=== PATIENT | male | born 1945 ===

== ENCOUNTER 2023-01-06 14:55 | Emergency (ER) | payer MEDICARE ==
[2023-01-06 15:24] LABS: BILIRUBIN,URINE NEGATIVE (NEGATIVE); GLUCOSE, URINE (UA) NEGATIVE (NEGATIVE); KETONES,URINE (UA) NEGATIVE (NEGATIVE); LEUKOCYTE ESTERASE, URINE NEGATIVE (NEGATIVE); NITRITE,URINE NEGATIVE (NEGATIVE); OCCULT BLOOD,URINE LARGE (NEGATIVE); PROTEIN,URINE NEGATIVE (NEGATIVE); UROBILINOGEN,URINE 0.2 (NORMAL) E.U./dL (NORMAL)
[2023-01-06] MEDS ORDERED: SODIUM CHLORIDE 0.9% 1,000 ML IV STA (15:27)
[2023-01-06 15:29] LABS: CLARITY,URINE CLEAR (CLEAR)
[2023-01-06 15:38] LABS: BASOPHILS % (AUTO) 0.2 %; EOSINOPHILS # (AUTO) 0.1 10^3/uL (0.0-0.7); HGB - HEMOGLOBIN 14.6 g/dL (14.0-18.0); LYMPHOCYTES # (AUTO) 1.1 10^3/uL (1.5-3.5); LYMPHOCYTES % (AUTO) 9.2 %; MEAN CORPUSCULAR HEMOGLOBIN 32.9 pg (27.0-31.0); MEAN CORPUSCULAR VOLUME 96.8 fL (80.0-94.0); MEAN PLATELET VOLUME 10.3 fL (7.4-11.4); MONOCYTES # (AUTO) 1.3 10^3/uL (0.0-1.0); MONOCYTES % (AUTO) 10.9 %; NEUTROPHILS % (AUTO) 78.4 %; PLT - PLATELET COUNT 168 10^3/uL (130-450); RED BLOOD COUNT 4.44 10^6/uL (4.70-6.10); RED CELL DISTRIBUTION WIDTH 13.1 % (12.0-15.0); WHITE BLOOD COUNT 11.5 x10^3/uL (4.8-10.8)
[2023-01-06 15:39] LABS: BACTERIA,URINE Rare /HPF (None Seen); RBC,URINE TNTC /HPF (0-5); SQUAMOUS EPITHELIAL CELL,UR NONE SEEN (<= Few); WBC,URINE 0-3 /HPF (0-3)
[2023-01-06 15:47] LABS: ALBUMIN 4.2 g/dL (3.2-5.5); ALBUMIN/GLOBULIN RATIO 1.4 (1.0-2.2); BILIRUBIN,TOTAL 0.9 mg/dL (0.2-1.0); CALCIUM 8.9 mg/dL (8.5-10.3); CREATININE 1.3 mg/dL (0.6-1.2); POTASSIUM 3.8 mmol/L (3.5-5.0); TOTAL PROTEIN 7.3 g/dL (6.7-8.2)
--- NOTE | 2023-01-06 17:08 | CT Report ---
PROCEDURE: ABDOMEN/PELVIS WO INDICATIONS: L flank pain hx/o kidney stone TECHNIQUE: A CT scan of the abdomen and pelvis was performed without the use of intravenous contrast. Images we re recorded and evaluated at appropriate window settings. Reformats: coronal and sagittal. For radiat ion dose reduction, the following was used: automated exposure control, adjustment of mA and/or kV ac cording to patient size. COMPARISON: None. FINDINGS: Image quality: There is streak artifact seen through the upper abdomen. Lung bases and heart: Unremarkable. A small to moderate hiatal hernia is incidentally noted. Liver: No solid mass. Gallbladder and biliary tree: Within normal limits. Spleen: No splenomegaly. Pancreas: No pancreatic ductal dilation. Adrenals: No adrenal nodule. Kidneys and ureters: There is a pair of obstructing stones seen within the left mid ureter, as on ser ies 2 image 54 and on series 5 image 39, with the largest of the stones measuring 7 mm craniocaudal a nd measuring 400 Hounsfield units. Associated moderate left-sided hydroureter and hydronephrosis can be seen. No obstructing left-sided kidney stones are seen, with the largest measuring 7 mm and 450 Hounsfield units. On the right, no definite stones are seen. Several bilateral renal cysts are seen. Along the right kidney laterally, there is an exophytic focus seen, as on series 5 image 51 that measures 60 Hounsfield units centrally and measures up to 1.8 cm. Bowel and peritoneum: No bowel distension. No pathologic free fluid. Postoperative change can be seen involving the gastroesophageal junction. No significant appendix abnormality is seen. Sigmoid diverticulosis is seen, without findings of active diverticulitis. Lymph nodes: No central or retroperitoneal adenopathy. Vessels: No infrarenal aortic aneurysm. Atherosclerotic calcification is seen. PELVIS Reproductive organs: Unremarkable. Bladder: No wall thickness, accounting for underdistention. Pelvic lymph nodes: No pelvic adenopathy by size criteria. Bones: No aggressive osseous abnormality. Bilateral L5 pars defects are seen, with grade 1 L5-S1 ante rolisthesis. Focal lower lumbar spine degenerative change can be seen. Mild levoconvex scoliotic curv ature is seen. Other: There is a moderate fat-containing periumbilical hernia present. IMPRESSION: There is a pair of obstructing stones are seen within the left mid ureter, with the largest measuring 7 mm. Associated moderate left sided hydroureter and hydronephrosis can be seen. There is a 1.8 cm lesion along the lateral aspect of the right kidney that cannot be defined as a sim ple cyst. Follow-up is recommended, either beginning with renal ultrasound or renal mass protocol CT. Additional findings: Small to moderate hiatal hernia Gastroesophageal junction postoperative change Bilateral simple appearing renal cysts Moderate fat-containing periumbilical hernia Diverticulosis, without findings of active diverticulitis. Levoconvex scoliotic curvature Focal lower lumbar spine degenerative change Bilateral L5 pars defects, with grade 1 L5-S1 anterolisthesis Reviewed by: Apolinar Kat MD on 01/06/2023 4:07 PM H[facility]ARY Approved by: Apolinar Kat MD on 01/06/2023 4:07 PM HILARY Station ID: [id number]
[2023-01-06 17:24] VITALS: BP 144/94
--- NOTE | 2023-01-06 17:24 | ED Physician Documentation ---
PD HPI ABD PAIN - Stated complaint Stated Complaint: PX LEFT KIDNEY / MALE - Chief complaint Chief Complaint: Ext Problem - History obtained from History obtained from: Patient - History of Present Illness Timing - onset: How many days ago (3) Timing - duration: Days (3) Timing - details: Abrupt onset, Still present Quality: Sharp, Pain Location: LUQ Radiation: Left flank Improved by: Meds Worsened by: Other (nothing) Associated symptoms: Nausea Similar symptoms before: Diagnosis (kidney stone) Recently seen: Not recently seen - Additional information Additional information: Evan Sellers is a 77-year-old male with a history of kidney stone who has developed pain in the left flank consistent with what he is had previously with kidney stone about 3 days ago. He is not getting adequate relief with Tylenol. He has had lithotripsy previously he has had basket retrieval previously. He has some nausea he has not had vomiting denies any other specific aches or illness. Review of Systems Constitutional: denies: Fever Ears: denies: Ear pain Nose: denies: Congestion Throat: denies: Sore throat Cardiac: denies: Chest pain / pressure Respiratory: denies: Dyspnea, Cough GI: reports: Abdominal Pain, Nausea. denies: Vomiting, Constipation, Diarrhea : denies: Dysuria, Frequency Skin: denies: Rash Musculoskeletal: reports: Back pain. denies: Neck pain, Extremity pain Neurologic: denies: Generalized weakness, Focal weakness, Numbness PD PAST MEDICAL HISTORY - Past Medical History Past Medical History: Yes Cardiovascular: None Respiratory: None Neuro: None Endocrine/Autoimmune: None GI: GERD : Kidney stones HEENT: None Psych: None Musculoskeletal: None Derm: None - Past Surgical History Past Surgical History: Yes General: Other Ortho: Other - Present Medications Home Medications: Ambulatory Orders Medication Instructions Recorded Confirmed HYDROcod/ACETAM 5/325 [Easley 5/325] 1 - 2 tablet PO Q6H PRN #14 tablet 01/06/23 Tamsulosin HCl [Flomax] 0.4 mg PO DAILY #10 cap 01/06/23 - Allergies Allergies/Adverse Reactions: Allergies Allergy/AdvReac Type Severity Reaction Status Date / Time ciprofloxacin [From Cipro] AdvReac Unknown Verified 01/06/23 15:06 - Social History Does the pt smoke?: No Smoking Status: Never smoker Does the pt drink ETOH?: No Does the pt have substance abuse?: No - Immunizations Immunizations are current?: Yes - POLST Patient has POLST: No PD ED PE NORMAL - Vitals Vital signs reviewed: Yes (Hypertensive mild.) - General General: Alert and oriented X 3, No acute distress, Well developed/nourished - HEENT HEENT: Atraumatic, PERRL, EOMI - Neck Neck: Supple, no meningeal sign, No bony TTP - Cardiac Cardiac: RRR, No murmur - Respiratory Respiratory: No respiratory distress, Clear bilaterally - Abdomen Abdomen: Normal bowel sounds, Soft, Non tender, Non distended, No organomegaly - Back Back: No CVA TTP, No spinal TTP - Derm Derm: Normal color, Warm and dry, No rash - Extremities Extremities: No deformity, No edema - Neuro Neuro: Alert and oriented X 3, dog licenser 2-12 intact, No motor deficit, No sensory deficit, Normal speech Eye Opening: Spontaneous Motor: Obeys Commands Verbal: Oriented GCS Score: 15 - Psych Psych: Normal mood, Normal affect Results - Vitals Vitals: Vital Signs - 24 hr 01/06/23 01/06/23 01/06/23 14:59 15:32 17:20 Temperature 36.5 C 36.1 C L 36.2 C L Heart Rate 57 L 52 L 52 L Respiratory 18 14 16 Rate Blood Pressure 140/65 H 123/74 144/94 H O2 Saturation 96 99 100 Oxygen O2 Source Room air - Labs Labs: Laboratory Tests 01/06/23 01/06/23 01/06/23 14:59 15:25 15:25 WBC 11.5 H RBC 4.44 L Hgb 14.6 Hct 43.0 MCV 96.8 H MCH 32.9 H MCHC 34.0 RDW 13.1 Plt Count 168 MPV 10.3 Neut # (Auto) 9.0 H Lymph # (Auto) 1.1 L Rice # (Auto) 1.3 H Eos # (Auto) 0.1 Baso # (Auto) 0.0 Absolute Nucleated RBC 0.00 Nucleated RBC % 0.0 Sodium 135 Potassium 3.8 Chloride 103 Carbon Dioxide 26 Anion Gap 6.0 BUN 24 H Creatinine 1.3 H Estimated GFR (MDRD) 54 L Glucose 139 H Calcium 8.9 Total Bilirubin 0.9 AST 19 ALT 25 Alkaline Phosphatase 61 Total Protein 7.3 Albumin 4.2 Globulin 3.1 Albumin/Globulin Ratio 1.4 Lipase 26 Urine Color YELLOW Urine Clarity CLEAR Urine pH 6.0 Ur Specific [place] 1.020 Urine Protein NEGATIVE Urine Glucose (UA) NEGATIVE Urine Ketones NEGATIVE Urine Occult Blood LARGE H Urine Nitrite NEGATIVE Urine Bilirubin NEGATIVE Urine Urobilinogen 0.2 (NORMAL) Ur Leukocyte Esterase NEGATIVE Urine RBC TNTC H Urine WBC 0-3 Ur Squamous Epith Cells NONE SEEN Urine Bacteria Rare Ur Microscopic Review INDICATED Urine Culture Comments NOT INDICATED - Rads (name of study) CT ab/pel Relevant Findings:: Prelim report reviewed (Impression: There is a pair of a obstructing stones seen within the left mid ureter, with the largest measuring 7 mm. Associated moderate left hydroureter and hydronephrosis can be seen. There is a 1.8 cm lesion along the lateral aspect of the right kidney that cannot be defined as a simple cyst. ), EMP independent interpretation of test, Other ( cannot be defined as a simple cyst. Follow-up is recommended, either beginning with renal ultrasound or renal mass protocol) PD Medical Decision Making - ED course Reviewed Lab Results: We evaluated complete blood count with a mildly elevated white blood cell count of 11.5 and normal hemoglobin hematocrit and platelets chemistries were r emarkable for elevated BUN at 24 and a creatinine of 1.3 we have no comparisons for this. Electrolytes and liver functions are normal. Urinalysis shows large occult occult blood and too numerous to count red blood cells. My interpretation of these findings are there is likely a kidney stone involved in this patient's care and likely causing some obstruction. ED course: 77-year-old Garcia Solares presents to the emergency apartment with what seems like to him a kidney stone originating from the left kidney. I evaluated the patient's left kidney with POCUS and found a nontender kidney with evidence of hydronephrosis. The patient was administered saline. He had been administered Toradol prior to arrival to the emergency department and had excellent control of his pain. A CT scan of the abdomen and pelvis confirmed the presence of 2 stones the largest up to 7 mm with evidence of obstruction. There was an incidental finding of mass in the right kidney that could not be definitively called a simple cyst. The patient will need follow-up for a large stone and for the mass in his right kidney. Departure - Departure Disposition: 01 Home, Self Care Clinical Impression: Ureterolithiasis Condition: Stable Instructions: ED Stone Renal W Colic Follow-Up: Ruben Fuller MD [Provider Admit Priv/Credential] - Prescriptions: Tamsulosin HCl [Flomax] 0.4 mg PO DAILY #10 cap HYDROcod/ACETAM 5/325 [Easley 5/325] 1 - 2 tablet PO Q6H PRN #14 tablet PRN Reason: Pain Comments: Garcia today looks like there are 2 stones that are obstructing the left ureter. These are large enough that they will need to be addressed by the urologist. I have given you our urologists telephone number Dr. Ruben Fuller. I have E scribed some Flomax and some Easley to the [facility] in [place]. My recommendation is to call Dr. Fuller's office tomorrow. Hydration is imperative and the tamsulosin or Flomax may help with the stone to pass. Forms: PCP List Discharge Date/Time: 01/06/23 18:00
== END 2023-01-06 18:00 | disposition home or self-care (01) ==
LOC: ED 14:55
DX: N13.2 Hydronephrosis with renal and ureteral calculous obstruction (principal)
CPT/HCPCS: 36415; 80053; 81001; 81003; 83690; 85025; 87086; 99284

== ENCOUNTER 2023-09-10 08:00 | Outpatient (CLI) | payer MEDICARE, OTHER ==
--- NOTE | 2023-09-10 17:54 | XRAY Report ---
PROCEDURE: Shoulder 2+V LT INDICATIONS: LEFT SHOULDER PAIN TECHNIQUE: 3 views of the shoulder were acquired. COMPARISON: None. FINDINGS: Bones: No fractures or dislocations. Moderate acromioclavicular joint space narrowing and juxta-john cular osteophytosis. Narrowing of the acromiohumeral interval. Coracoclavicular interval is maintaine d. No suspicious bony lesions. Visualized ribs appear intact. Soft tissues: No suspicious soft tissue calcifications. The visualized lungs are within normal limi ts. IMPRESSION: 1.No acute bony abnormality. If pain persists with conservative management, consider repeat radiograp hs in 10-14 days or cross-sectional imaging. 2.Moderate acromioclavicular joint osteoarthritis. 3.Narrowing of the acromiohumeral interval which may be seen in the setting of rotator cuff pathology . If clinically warranted, consider MRI for further evaluation. Reviewed by: Sheri Dodd MD on 09/10/2023 5:53 PM PDT Approved by: Sheri Dodd MD on 09/10/2023 5:53 PM PDT Station ID: [id number]
== END 2023-09-10 23:59 | disposition home or self-care (01) ==
LOC: DI.S 08:00
PROVIDERS: ATTEND Nurse Practitioner
DX: M19.012 Primary osteoarthritis, left shoulder (principal)

== ENCOUNTER 2023-11-27 08:00 | Outpatient (CLI) | payer MEDICARE, OTHER ==
--- NOTE | 2023-11-27 14:58 | XRAY Report ---
PROCEDURE: Foot 3+V LT INDICATIONS: CONTUSION OF GREAT TOE/LEFT FOOT TECHNIQUE: 3 views of the foot were acquired. COMPARISON: None. FINDINGS: Bones: No fractures or dislocations. Hallux causing indentation of the first MTP with medial bunion formation. Severe degenerative change the first MTP joint. Mild diffuse interphalangeal joint degene ration. No suspicious bony lesions. Soft tissues: No tibiotalar joint effusion. Achilles tendon appears normal. Atherosclerotic vascula r opacifications. IMPRESSION: No acute bony abnormality. Reviewed by: Cornell Ocampo MD on 11/27/2023 2:56 PM PDT Approved by: Cornell Ocampo MD on 11/27/2023 2:56 PM PDT Station ID: [id number]
== END 2023-11-27 23:59 | disposition home or self-care (01) ==
LOC: DI.S 08:00
PROVIDERS: ATTEND Physician Assistant Medical
DX: S90.32XA Contusion of left foot, initial encounter (principal); S90.112A Contusion of left great toe without damage to nail, initial encounter